=== PATIENT | female | born 1995 | race Caucasian/White ===

== ENCOUNTER 2016-10-02 13:51 | Emergency (ER) | payer MEDICAID ==
[~2016-10-02] VITALS: Ht 160 cm; Wt 98.7 kg
[2016-10-02] MEDS ORDERED: SODIUM CHLORIDE 0.9% 1,000 ML IV ONE (14:07)
[2016-10-02] MEDS ORDERED: SODIUM CHLORIDE 0.9% 1,000ML IVBOLUS ONE (14:30)
[2016-10-02] MEDS ORDERED: ONDANSETRON 2MG/ML, 2ML IVPush ONE (14:30)
[2016-10-02] MEDS ORDERED: SODIUM CHLORIDE FLUSH 10ML SYR IVF ONE (14:30)
[2016-10-02] MEDS ORDERED: ONDANSETRON 2MG/ML, 2ML ONE (14:30)
[2016-10-02 14:47] LABS: ASPARTATE AMINO TRANSFERASE 10 U/L (15-37); BLOOD UREA NITROGEN 15 mg/dL (7-18)
[2016-10-02 15:33] LABS: PATH.CAST-FLAG NOT PRESENT; SPERM-FLAG NOT PRESENT; SRC-FLAG NOT PRESENT; XTAL-FLAG NOT PRESENT; YLC-FLAG NOT PRESENT
[2016-10-02 16:46] VITALS: BP 105/70
== END 2016-10-02 16:50 | disposition home or self-care (01) ==
LOC: ED 14:37
DX: N10 Acute pyelonephritis (principal)
CPT/HCPCS: 36415; 74176; 80053; 81001; 83605; 83690; 84703; 85025; 87077; 87086; 87186; 96361; 96374; 99285; J2405; J7030

== ENCOUNTER 2016-10-15 00:28 | Emergency (ER) | payer MEDICAID ==
[~2016-10-15] VITALS: Ht 160 cm; Wt 99.8 kg
[2016-10-15] MEDS ORDERED: HYDROcodone/APAP 5/325 TABLET ONE (00:57)
[2016-10-15] MEDS ORDERED: HYDROcodone/APAP 5/325 TABLET PO ONE (01:00)
[2016-10-15 01:58] VITALS: BP 115/79
== END 2016-10-15 02:01 | disposition home or self-care (01) ==
LOC: ED 00:47
DX: S39.012A Strain of muscle, fascia and tendon of lower back, initial encounter (principal); S30.0XXA Contusion of lower back and pelvis, initial encounter; W10.9XXA Fall (on) (from) unspecified stairs and steps, initial encounter; Y93.89 Activity, other specified; Y92.89 Other specified places as the place of occurrence of the external cause; Y99.9 Unspecified external cause status
CPT/HCPCS: 72110; 99284

== ENCOUNTER 2017-05-05 00:16 | Emergency (ER) | payer MEDICAID ==
[~2017-05-05] VITALS: Ht 160 cm; Wt 80.0 kg
[2017-05-05 00:18] VITALS: BP 129/86
[2017-05-05 01:36] LABS: MICROSCOPIC INDICATED
[2017-05-05 01:48] LABS: CULTURE INDICATED? NO
== END 2017-05-05 02:26 | disposition home or self-care (01) ==
LOC: ED 00:31
DX: R10.30 Lower abdominal pain, unspecified (principal); Z87.891 Personal history of nicotine dependence
CPT/HCPCS: 81001; 99283

== ENCOUNTER 2018-06-06 11:10 | Emergency (ER) | payer MEDICAID ==
[~2018-06-06] VITALS: Ht 160 cm; Wt 99.1 kg
[2018-06-06 11:53] LABS: BASOPHILS # (AUTO) 0.05 x10^3/uL (0-0.1); BASOPHILS % (AUTO) 1 % (0-1); EOSINOPHILS % (AUTO) 3 % (1-7); LYMPHOCYTES # (AUTO) 2.36 x10^3/uL (1-3.4); LYMPHOCYTES % (AUTO) 33 % (22-44); MD NO; MEAN CORPUSCULAR HEMOGLOBIN 30.4 pg (27.0-34.8); MEAN CORPUSCULAR HGB CONC 34.1 g/dL (32.4-35.8); MEAN CORPUSCULAR VOLUME 89.1 fL (80-100); MEAN PLATELET VOLUME 8.6 fL (7.4-10.4); MONOCYTES # (AUTO) 0.46 x10^3/uL (0.2-0.8); MONOCYTES % (AUTO) 6 % (2-9); NEUTROPHILS # (AUTO) 4.18 x10^3/uL (1.8-6.8); NEUTROPHILS % (AUTO) 58 % (42-75); PLATELET COUNT 275 x10^3/uL (130-400); RED BLOOD COUNT 4.56 x10^6/uL (3.82-5.3); RED CELL DISTRIBUTION WIDTH 14.6 % (9.6-15.2)
--- NOTE | 2018-06-06 12:12 | NUR ---
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
--- NOTE | 2018-06-06 12:15 | NUR ---
ASSUMED CARE OF PT AT THIS TIME FROM LOBBY. PT AMBULATORY TO ROOM WITH STEADY GAIT. 22 Y/O F PRESENTS STATING "I HAD MY NORMAL PERIOD 05/12/18, THEN ON THE I STARTED BLEEDING AGAIN, CAUSING PAIN WITH SEX AND PAIN IN MY STOMACH, GETTING WORSE AND BLEEDING WORSE TODAY, USING 2-3 REGULAR PADS EVERY HOUR. I COULD BE , I DON'T KNOW FOR SURE." G2, P1, A1. LMP 05/12/18. RATES ABD PAIN 11/18. CONT PULSE OX, BP MONITORS APPLIED. VSS. CALL LIGHT IN REACH. FALL PRECAUTIONS IN PLACE. SIDE RAILS UPX2. AT BEDSIDE FOR EVALUATION. ABD SOFT, BLQ ABD SOFT TO PALPATION. PT DENIES URGE TO URINATE AT THIS TIME, AWARE SAMPLE IS NEEDED.
--- NOTE | 2018-06-06 12:36 | NUR ---
PT TO US AT THIS TIME.
--- NOTE | 2018-06-06 13:27 | NUR ---
PT BACK FROM US, CLEAN CATCH UA PROVIDED IN US. UA SENT TO LAB. PT RESTING COMFORTABLY. USING CELL PHONE. DENIES NEED TO USE RESTROOM. REFUSES NEED FOR PAIN MEDICATION. VSS. CALL LIGHT IN REACH. WARM BLANKET PROVIDED FOR COMFORT.
[2018-06-06 13:54] LABS: CULTURE INDICATED? NO; HCG UR SG 1.023 (1.003-1.030); MICROSCOPIC AUTO
--- NOTE | 2018-06-06 13:59 | NUR ---
PT UP FOR RECHECK.
--- NOTE | 2018-06-06 14:02 | NUR ---
DR. ADAMS AT BEDSIDE FOR RECHECK, DISCUSSING POC AND TEST RESULTS. AWAITING BETA HCG RESULTS. VSS. CALL LIGHT IN REACH. DENIES NEED TO USE RESTROOM. PT USING CELL PHONE, RESTING IN POSITION OF COMFORT.
[2018-06-06 14:05] VITALS: BP 117/78
--- NOTE | 2018-06-06 14:27 | NUR ---
BEDSIDE REPORT AND CARE TO LAINEY CHEN AT THIS TIME.
== END 2018-06-06 15:19 | disposition home or self-care (01) ==
LOC: ED 14:03
DX: O20.0 Threatened abortion (principal)
CPT/HCPCS: 36415; 76830; 81001; 81025; 84702; 85025; 99284

== ENCOUNTER 2018-06-19 20:04 | Inpatient (IN) | payer MEDICAID ==
[~2018-06-19] VITALS: Ht 160 cm; Wt 100.0 kg
--- NOTE | 2018-06-19 21:50 | NUR ---
PT. TO ROOM FROM LOBBY.
[2018-06-19] MEDS ORDERED: SODIUM CHLORIDE 0.9% 1,000 ML IV ONE ×2 (21:53→22:35)
[2018-06-19] MEDS ORDERED: MORPHINE SULFATE 4 MG/ML, 1ML IVPush PRN ×2 (22:00→23:30)
[2018-06-19] MEDS ORDERED: SODIUM CHLORIDE FLUSH 10ML SYR IVF ONE (22:00)
[2018-06-19] MEDS ORDERED: ONDANSETRON 2MG/ML, 2ML IVPush ONE (22:00)
[2018-06-19] MEDS ORDERED: ONDANSETRON 2MG/ML, 2ML ONE ×3 (22:14→23:52)
[2018-06-19 22:15] LABS: BASOPHILS # (AUTO) 0.12 x10^3/uL (0-0.1); BASOPHILS % (AUTO) 1 % (0-1); EOSINOPHILS # (AUTO) 0.08 x10^3/uL (0-0.4); EOSINOPHILS % (AUTO) 1 % (1-7); LYMPHOCYTES # (AUTO) 1.99 x10^3/uL (1-3.4); LYMPHOCYTES % (AUTO) 16 % (22-44); MD NO; MEAN CORPUSCULAR HEMOGLOBIN 30.4 pg (27.0-34.8); MEAN CORPUSCULAR HGB CONC 33.9 g/dL (32.4-35.8); MEAN CORPUSCULAR VOLUME 89.7 fL (80-100); MEAN PLATELET VOLUME 8.9 fL (7.4-10.4); MONOCYTES # (AUTO) 0.43 x10^3/uL (0.2-0.8); MONOCYTES % (AUTO) 4 % (2-9); NEUTROPHILS # (AUTO) 9.72 x10^3/uL (1.8-6.8); NEUTROPHILS % (AUTO) 79 % (42-75); PLATELET COUNT 296 x10^3/uL (130-400); RED BLOOD COUNT 4.37 x10^6/uL (3.82-5.3)
[2018-06-19] MEDS ORDERED: MORPHINE SULFATE 4 MG/ML, 1ML ONE (22:15)
--- NOTE | 2018-06-19 22:22 | NUR ---
SUMMARY NOTE: PT. TO ED SONIA JEFF C/O LLQ ABD PAIN X TODAY; PAIN HAS BEEN OFF/ON SINCE FINDING OUT SHE WAS . US RESULTS WERE BACK PRIOR TO PT. COMING TO ED ROOM. IV STARTED RIGHT AWAY; FLUIDS RUNNING PER ORDER AND PT. MEDICATED FOR 10/10 PAIN. VSS AND UPDATED IN COMPUTER. CALL LIGHT IN REACH. FAMILY AT BS FOR SUPPORT. PT. DENIES NEEDS AT THIS TIME. CONTINUOUS PULSE OX AND B/P MONITORS IN PLACE.
[2018-06-19 22:26] LABS: ALBUMIN 4.2 g/dL (3.4-5.0); ANION GAP 7 mmol/L (5-15); CALCIUM 9.2 mg/dL (8.5-10.1); CHLORIDE 105 mmol/L (98-107)
[2018-06-19] MEDS ORDERED: EPINEPHRINE 1 MG/ML, 1ML ONE ×2 (22:30→23:55)
[2018-06-19] MEDS ORDERED: MISOPROSTOL 200 MCG TABLET ONE (22:30)
[2018-06-19] MEDS ORDERED: BUPIVACAINE/PF 0.25% ONE ×2 (22:30→23:55)
--- NOTE | 2018-06-19 22:30 | NUR ---
REPORT TO OMAYRA.
[2018-06-19 22:32] LABS: ALANINE AMINOTRANSFERASE 22 U/L (12-78); ALKALINE PHOSPHATASE 61 U/L (45-117); BILIRUBIN,TOTAL 1.2 mg/dL (0.2-1.0); CREATININE 0.91 mg/dL (0.55-1.02); TOTAL PROTEIN 7.9 g/dL (6.4-8.2)
--- NOTE | 2018-06-19 22:32 | NUR ---
PT. TO GO TO OR.
[2018-06-19] MEDS ORDERED: MIDAZOLAM 1 MG/ML, 2ML ONE (22:47)
[2018-06-19] MEDS ORDERED: FENTANYL PF 100 MCG/2ML ONE ×3 (22:47→23:28)
[2018-06-19] MEDS ORDERED: SILVER NITRATE STICK TP ONE (22:48)
[2018-06-19] MEDS ORDERED: GLYCOPYRROLATE 0.2MG/1ML, 5ML ONE (22:58)
[2018-06-19] MEDS ORDERED: NEOSTIGMINE 1 MG/ML, 10ML ONE (22:58)
[2018-06-19] MEDS ORDERED: SODIUM CHLORIDE FLUSH 10ML SYR IVF PRN (23:00)
[2018-06-19] MEDS ORDERED: ONDANSETRON 2MG/ML, 2ML IV PRN (23:30)
[2018-06-19] MEDS ORDERED: MIDAZOLAM 1 MG/ML, 2ML IV PRN (23:30)
[2018-06-19] MEDS ORDERED: ALBUTEROL SULFATE 2.5 MG/3 ML NPPB PRN (23:30)
[2018-06-19] MEDS ORDERED: HYDROmorphone 2 MG/ML, 1ML IVPush PRN (23:30)
[2018-06-19] MEDS ORDERED: LABETALOL 5MG/ML, 20ML IV PRN (23:30)
[2018-06-19] MEDS ORDERED: ONDANSETRON ODT 8 MG PO PRN (23:30)
[2018-06-19] MEDS ORDERED: OXYcodone 5 MG/5 ML ORAL.SOL UDC PO PRN (23:30)
[2018-06-19] MEDS ORDERED: PROMETHAZINE 12.5 MG SUPP PR PRN (23:30)
[2018-06-19] MEDS ORDERED: HALOPERIDOL 5 MG/ML IV PRN (23:30)
[2018-06-19] MEDS ORDERED: MEPERIDINE/PF 25MG/0.5ML IVPush PRN (23:30)
[2018-06-19] MEDS ORDERED: hydrALAzine 20 MG/ML, 1ML IV PRN (23:30)
[2018-06-19] MEDS ORDERED: DIAZEPAM 5 MG/ML, 2ML IVPush PRN (23:30)
[2018-06-19] MEDS ORDERED: PROMETHAZINE 25 MG/ML, 1ML IV PRN (23:30)
[2018-06-19] MEDS ORDERED: EPHEDRINE 50 MG/ML, 1ML IVPush PRN (23:30)
[2018-06-19] MEDS ORDERED: BUPIVACAINE/PF-EPI 0.25% 1:200K INFIL ONE (23:48)
[2018-06-19] MEDS ORDERED: PROPOFOL 10 MG/ML, 20ML ONE (23:52)
[2018-06-19] MEDS ORDERED: ROCURONIUM 10MG/ML,5ML ONE (23:52)
[2018-06-19] MEDS ORDERED: DEXAMETHASONE 4 MG/ML, 1ML ONE ×2 (23:53)
[2018-06-19] MEDS ORDERED: SUCCINYLCHOLINE 20 MG/ML, 10ML ONE (23:53)
[2018-06-20] MEDS ORDERED: KETOROLAC 30 MG/1 ML ONE (00:04)
[2018-06-20] MEDS ORDERED: OXYcodone 5 MG/5 ML ORAL.SOL UDC ONE (00:33)
[2018-06-20] MEDS ORDERED: MEPERIDINE/PF 25MG/ML,1ML ONE (00:33)
[2018-06-20] MEDS ORDERED: FENTANYL PF 100 MCG/2ML ONE (00:33)
[2018-06-20] MEDS: FENTANYL PF 100 MCG/2ML IV PRN ×2 (00:39→00:48)
[2018-06-20 01:00] VITALS: BP 104/64
[2018-06-20] MEDS ORDERED: KETOROLAC 30 MG/1 ML IVPush PRN (02:00)
[2018-06-20] MEDS ORDERED: OXYcodone/APAP 5/325MG TABLET PO PRN (02:00)
== END 2018-06-20 02:38 | disposition home or self-care (01) | DRG 817 ==
LOC: ED 21:52 → EDIP 22:35 → 3WST 06-20 01:10
PROVIDERS: ADMIT Obstetrics & Gynecology; ATTEND Obstetrics & Gynecology
PROC: 10T24ZZ Resection of Products of Conception, Ectopic, Percutaneous Endoscopic Approach (ICD-10-PCS; 2018-06-19)
PROC: 0UT64ZZ Resection of Left Fallopian Tube, Percutaneous Endoscopic Approach (ICD-10-PCS; principal; 2018-06-19 22:30)
DX: O00.102 Left tubal pregnancy without intrauterine pregnancy (principal); K66.1 Hemoperitoneum; O99.281 Endocrine, nutritional and metabolic diseases complicating pregnancy, first trimester; O26.891 Other specified pregnancy related conditions, first trimester; E28.2 Polycystic ovarian syndrome; Z3A.01 Less than 8 weeks gestation of pregnancy
CPT/HCPCS: 36415; 99285; J3490; 76801; 80053; 84702; 85025; 86901; 88305; 96374; 96375; J0171; J1100; J1885; J2175; J2250; J2405; J2704; J2710; J3010; J0330; J7030

== ENCOUNTER 2018-10-09 23:32 | Emergency (ER) | payer MEDICAID ==
[~2018-10-09] VITALS: Ht 160 cm; Wt 101.8 kg
[2018-10-09 23:33] VITALS: BP 119/81
[2018-10-10] LABS: BASOPHILS # (AUTO) 0.07 x10^3/uL (0-0.1); BASOPHILS % (AUTO) 1 % (0-1); EOSINOPHILS # (AUTO) 0.17 x10^3/uL (0-0.4); EOSINOPHILS % (AUTO) 2 % (1-7); LYMPHOCYTES # (AUTO) 2.63 x10^3/uL (1-3.4); LYMPHOCYTES % (AUTO) 24 % (22-44); MD NO; MEAN CORPUSCULAR HEMOGLOBIN 28.7 pg (27.0-34.8); MEAN CORPUSCULAR HGB CONC 32.6 g/dL (32.4-35.8); MEAN CORPUSCULAR VOLUME 88.2 fL (80-100); MEAN PLATELET VOLUME 8.9 fL (7.4-10.4); MONOCYTES # (AUTO) 0.94 x10^3/uL (0.2-0.8); MONOCYTES % (AUTO) 8 % (2-9); NEUTROPHILS # (AUTO) 7.38 x10^3/uL (1.8-6.8); NEUTROPHILS % (AUTO) 66 % (42-75); PLATELET COUNT 265 x10^3/uL (130-400); RED BLOOD COUNT 4.61 x10^6/uL (3.82-5.3); RED CELL DISTRIBUTION WIDTH 15.1 % (9.6-15.2)
[2018-10-10] MEDS ORDERED: HYDROcodone/APAP 5/325 TABLET PO ONE
[2018-10-10 00:11] LABS: ALBUMIN 3.3 g/dL (3.4-5.0); ANION GAP 7 mmol/L (5-15); CALCIUM 8.5 mg/dL (8.5-10.1); CHLORIDE 108 mmol/L (98-107); CREATININE 1.04 mg/dL (0.55-1.02)
[2018-10-10 00:15] LABS: HCG UR SG 1.022 (1.003-1.030); MICROSCOPIC AUTO
[2018-10-10 00:18] LABS: CULTURE INDICATED? YES
--- NOTE | 2018-10-10 00:20 | NUR ---
PT TO US AT THIS TIME.
[2018-10-10] MEDS ORDERED: CEFDINIR 300 MG CAPSULE PO ONE (01:30)
[2018-10-10] MEDS ORDERED: CEFDINIR 300 MG CAPSULE ONE (01:44)
[2018-10-10] MEDS ORDERED: HYDROcodone/APAP 5/325 TABLET ONE (01:44)
== END 2018-10-10 02:07 | disposition home or self-care (01) ==
LOC: ED 10-10 01:45
DX: N30.00 Acute cystitis without hematuria (principal); R10.2 Pelvic and perineal pain; Z87.891 Personal history of nicotine dependence
CPT/HCPCS: 36415; 76830; 80048; 81001; 81025; 82040; 85025; 87077; 87086; 87186; 99284

== ENCOUNTER 2019-06-08 14:09 | Emergency (ER) | payer MEDICAID ==
[~2019-06-08] VITALS: Ht 160 cm; Wt 111.7 kg
[2019-06-08 14:12] VITALS: BP 111/70
== END 2019-06-08 15:38 | disposition home or self-care (01) ==
LOC: ED 14:15
DX: S93.491A Sprain of other ligament of right ankle, initial encounter (principal); X58.XXXA Exposure to other specified factors, initial encounter; Y93.89 Activity, other specified; Y92.89 Other specified places as the place of occurrence of the external cause; Y99.8 Other external cause status
CPT/HCPCS: 99283

== ENCOUNTER 2019-08-27 10:39 | Emergency (ER) | payer MEDICAID ==
[~2019-08-27] VITALS: Ht 160 cm; Wt 114.2 kg
--- NOTE | 2019-08-27 10:52 | NUR ---
PT CAME IN CO OF RLQ ABD PAIN. STATES " I HAVENT HAD A PERIOD SINCE MAY 24 AND THEY ARE USUALLY PRETTY REGULAR. I HAD AN ECTOPIC BEFORE AND I ONLY HAVE A FALLOPIAN TUBE ON THE RIGHT SIDE. THIS FEELS SIMILAR". 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 ACCOMPANIED BY FRIEND.
--- NOTE | 2019-08-27 10:58 | NUR ---
PT ALSO STATES IF THIS WOULD BE HER 4TH . SHE HAS HAD 2 MISCARRIAGES, 1 ECTOPIC, AND 1 TO TERM WITH NO COMPLICATIONS
[2019-08-27] MEDS ORDERED: ONDANSETRON 2MG/ML, 2ML ONE (11:26)
[2019-08-27] MEDS ORDERED: MORPHINE SULFATE 4 MG/ML, 1ML ONE (11:26)
[2019-08-27] MEDS ORDERED: ONDANSETRON 2MG/ML, 2ML IVPush ONE (11:30)
[2019-08-27] MEDS ORDERED: MORPHINE SULFATE 4 MG/ML, 1ML IVPush PRN (11:30)
[2019-08-27 11:54] LABS: BASOPHILS # (AUTO) 0.01 x10^3/uL (0-0.1); BASOPHILS % (AUTO) 0 % (0-1); EOSINOPHILS # (AUTO) 0.14 x10^3/uL (0-0.4); EOSINOPHILS % (AUTO) 2 % (1-7); LYMPHOCYTES # (AUTO) 1.77 x10^3/uL (1-3.4); LYMPHOCYTES % (AUTO) 26 % (22-44); MD NO; MEAN CORPUSCULAR HEMOGLOBIN 29.1 pg (27.0-34.8); MEAN CORPUSCULAR VOLUME 88.3 fL (80-100); MEAN PLATELET VOLUME 9.1 fL (7.4-10.4); MONOCYTES # (AUTO) 0.45 x10^3/uL (0.2-0.8); MONOCYTES % (AUTO) 7 % (2-9); NEUTROPHILS # (AUTO) 4.31 x10^3/uL (1.8-6.8); NEUTROPHILS % (AUTO) 65 % (42-75); PLATELET COUNT 241 x10^3/uL (130-400); RED BLOOD COUNT 4.46 x10^6/uL (3.82-5.3); RED CELL DISTRIBUTION WIDTH 13.6 % (9.6-15.2)
--- NOTE | 2019-08-27 12:02 | NUR ---
PT RESTING IN [facility]. NAD. VSS
[2019-08-27 12:07] LABS: ALBUMIN 3.2 g/dL (3.4-5.0); ANION GAP 5 mmol/L (5-15); CALCIUM 8.3 mg/dL (8.5-10.1); CHLORIDE 109 mmol/L (98-107)
[2019-08-27 12:15] LABS: ALANINE AMINOTRANSFERASE 13 U/L (12-78); BILIRUBIN,TOTAL 0.4 mg/dL (0.2-1.0); CREATININE 0.86 mg/dL (0.55-1.02); TOTAL PROTEIN 6.9 g/dL (6.4-8.2)
[2019-08-27 12:20] LABS: ALKALINE PHOSPHATASE 53 U/L (45-117)
[2019-08-27 12:44] LABS: MICROSCOPIC INDICATED
[2019-08-27 12:59] VITALS: BP 108/68
--- NOTE | 2019-08-27 13:00 | NUR ---
PT RESTING IN [facility]. AWAITING US RESULTS.
== END 2019-08-27 13:58 | disposition home or self-care (01) ==
LOC: ED 12:27
DX: Z32.01 Encounter for pregnancy test, result positive (principal); O20.0 Threatened abortion
CPT/HCPCS: 36415; 76830; 80053; 81001; 84702; 85025; 87077; 87086; 96374; 96375; 99284; J2270; J2405; 84703; 87186

== ENCOUNTER 2019-09-29 20:03 | Emergency (ER) | payer MEDICAID ==
[~2019-09-29] VITALS: Ht 160 cm; Wt 114.4 kg
[2019-09-29 20:16] VITALS: BP 124/81
--- NOTE | 2019-09-29 20:25 | NUR ---
DR LOBATO BS FOR EXAM. PT WALKING AROUND ED ROOM. PT STATES SHE SMOKED POT AND TOOK IBUPROFEN TODAY.
[2019-09-29] MEDS ORDERED: METHOCARBAMOL 750 MG TABLET PO ONE (20:30)
--- NOTE | 2019-09-29 20:41 | NUR ---
PT WILL FILL ROBAXIN RX.
== END 2019-09-29 20:45 | disposition home or self-care (01) ==
LOC: ED 20:32
DX: S39.012A Strain of muscle, fascia and tendon of lower back, initial encounter (principal); X58.XXXA Exposure to other specified factors, initial encounter; Y93.89 Activity, other specified; Y92.89 Other specified places as the place of occurrence of the external cause; Y99.8 Other external cause status
CPT/HCPCS: 99283

== ENCOUNTER 2020-01-14 13:43 | Emergency (ER) | payer MEDICAID ==
[~2020-01-14] VITALS: Ht 160 cm; Wt 118.0 kg
[2020-01-14 14:01] VITALS: BP 120/75
[2020-01-14 14:25] LABS: MICROSCOPIC AUTO
[2020-01-14] MEDS ORDERED: SODIUM CHLORIDE FLUSH 10ML SYR IVF ONE (14:30)
[2020-01-14 15:29] LABS: BASOPHILS % (AUTO) 1 % (0-1); EOSINOPHILS % (AUTO) 3 % (1-7); LYMPHOCYTES % (AUTO) 32 % (22-44); MEAN CORPUSCULAR HEMOGLOBIN 28.6 pg (27.0-34.8); MEAN CORPUSCULAR HGB CONC 32.8 g/dL (32.4-35.8); MEAN PLATELET VOLUME 8.8 fL (7.4-10.4); MONOCYTES % (AUTO) 5 % (2-9); NEUTROPHILS % (AUTO) 59 % (42-75); PLATELET COUNT 266 x10^3/uL (130-400); RED BLOOD COUNT 4.71 x10^6/uL (3.82-5.3); RED CELL DISTRIBUTION WIDTH 13.9 % (9.6-15.2)
[2020-01-14 15:31] LABS: MD NO
[2020-01-14 15:39] LABS: ANION GAP 6 mmol/L (5-15); CALCIUM 8.8 mg/dL (8.5-10.1); CHLORIDE 107 mmol/L (98-107); CREATININE 1.05 mg/dL (0.55-1.02)
[2020-01-14 15:40] LABS: ALANINE AMINOTRANSFERASE 23 U/L (12-78); ALBUMIN 3.4 g/dL (3.4-5.0)
[2020-01-14 15:44] LABS: ALKALINE PHOSPHATASE 63 U/L (45-117); BILIRUBIN,TOTAL 0.5 mg/dL (0.2-1.0); TOTAL PROTEIN 7.4 g/dL (6.4-8.2)
--- NOTE | 2020-01-14 16:10 | NUR ---
PT TO RM FROM LOBBY
== END 2020-01-14 18:08 | disposition home or self-care (01) ==
LOC: ED 18:01
DX: N30.00 Acute cystitis without hematuria (principal); E28.2 Polycystic ovarian syndrome; L42 Pityriasis rosea
CPT/HCPCS: 36415; 74021; 76830; 80053; 81001; 84703; 85025; 87077; 87086; 87186; 99285